=== PATIENT | male | born 1950 | race African-American/Black ===

== ENCOUNTER 2022-08-22 18:24 | Emergency (ER) | payer MEDICARE, OTHER ==
[2022-08-22] MEDS ORDERED: Boostrix 0.5 ML (Tdap) VIAL (>/=7 yrs of age) ONE (19:40)
== END 2022-08-22 19:59 ==
LOC: ERS 18:24
DX: S01.511A Laceration without foreign body of lip, initial encounter (principal); W11.XXXA Fall on and from ladder, initial encounter; Z23 Encounter for immunization
CPT/HCPCS: 12011; 90471; 90715